=== PATIENT | male | born 1975 | race Hispanic/Latino ===

== ENCOUNTER 2020-05-03 16:58 | Outpatient (CLI) | payer MEDICARE ==
[2020-05-04 05:36] LABS: SARS-CoV-2 PCR by NAA Not Detected (NotDetected)
== END 2020-05-03 16:59 | disposition home or self-care (01) ==
LOC: LABBT 16:58
PROVIDERS: ATTEND Family Medicine
DX: Z01.812 Encounter for preprocedural laboratory examination (principal); Z20.822 Contact with and (suspected) exposure to COVID-19
CPT/HCPCS: U0003; U0005; 87635

== ENCOUNTER 2020-05-06 06:19 | Day surgery (SDC) | payer MEDICARE ==
[2020-05-05 12:18] VITALS: BMI 32.3
[2020-05-06] MEDS ORDERED: Fentanyl 100 MCG/2 ML VIAL ONE ×4 (06:22→10:01)
[2020-05-06] MEDS ORDERED: HYDROmorphone 0.5 MG/0.5 ML SYRINGE ONE (06:22)
[2020-05-06] MEDS ORDERED: Midazolam HCl 2 mg/2 ml Vial ONE (06:22)
[2020-05-06] MEDS ORDERED: Lidocaine 2% Jelly 5 ML TUBE ONE (06:23)
[2020-05-06] MEDS ORDERED: Dexamethasone 20 MG/5 ML VIAL ONE (07:35)
[2020-05-06] MEDS ORDERED: PROPOFOL 200 MG/20 ML VIAL ONE (07:35)
[2020-05-06] MEDS ORDERED: Ondansetron PF 4 MG/2 ML Vial ONE ×2 (07:35→10:01)
[2020-05-06] MEDS ORDERED: Lidocaine 1% PF 5 ML VIAL ONE ×2 (07:35)
[2020-05-06] MEDS ORDERED: hydrALAZINE 20 MG/ML VIAL ONE ×2 (09:28→11:23)
[2020-05-06] MEDS ORDERED: Promethazine HCl 25 MG/ML VIAL ONE (10:05)
[2020-05-06] MEDS ORDERED: HYDROcodone/Acetaminophen 5/325 mg Tablet ONE (11:17)
[2020-05-06] MEDS ORDERED: Morphine 2 MG/ML VIAL ONE (11:22)
== END 2020-05-06 12:40 | disposition home or self-care (01) ==
LOC: SDC 06:19
PROVIDERS: ATTEND Orthopaedic Surgery
PROC: 0QSJ04Z Reposition Right Fibula with Internal Fixation Device, Open Approach (ICD-10-PCS; principal; 2020-05-06)
DX: S82.61XA Displaced fracture of lateral malleolus of right fibula, initial encounter for closed fracture (principal); I10 Essential (primary) hypertension; F17.200 Nicotine dependence, unspecified, uncomplicated; Z87.820 Personal history of traumatic brain injury; Z79.899 Other long term (current) drug therapy; W00.0XXA Fall on same level due to ice and snow, initial encounter
CPT/HCPCS: 27792; 73610; 76000; 97139; C1713 ×4; J2270; J0360; J0690; J1100; J1170; J2250; J2405; J2550; J2704; J3010